=== PATIENT | male | born 1935 | race Caucasian/White ===

== ENCOUNTER → 2017-10-22 16:25 | Outpatient (CLI) | payer MEDICARE, OTHER ==
[~2017-10-22 16:25] MED LIST: COREG25 MG PO; ELIQUIS2.5 MG PO; HYDROCODON-ACE1 EAC7 PO; ISOSORBIDE MONO30 M1 PO; K-TAB10 MEQ PO; METOLAZONE2.5 MG PO; ZESTRIL20 MG PO; ZOCOR80 MG PO
[2017-11-05 18:28] VITALS: BMI 35.9
== END | disposition home or self-care (01) ==
LOC: D.LABREF 16:25
DX: M17.11 Unilateral primary osteoarthritis, right knee (principal); Z11.8 Encounter for screening for other infectious and parasitic diseases

== ENCOUNTER 2017-10-30 10:00 | Inpatient (IN) | payer MEDICARE, OTHER ==
[~2017-10-30] VITALS: Ht 177.8 cm; Wt 113.6 kg
--- NOTE | ~2017-10-30 | OP ---
PATIENT NAME: MENG HALL MEDICAL RECORD: [id number] :37 LOCATION:[facility] [id number] ADMISSION DATE:11/04/17 SURGEON: NUHA STAPLETON MD DATE OF OPERATION: 11/04/2017 PREOPERATIVE DIAGNOSIS: Degenerative arthritis, right knee. POSTOPERATIVE DIAGNOSIS: Degenerative arthritis, right knee. PROCEDURE: Right total knee arthroplasty. SURGEON: Nuha Stapleton MD ANESTHESIA: General. INTRAOPERATIVE COMPLICATIONS: None. 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 IMPLANTS USED: Triathlon total knee implant system, size 6 distal femur, 5 tibial baseplate, 9 mm polyethylene insert and 36 patellar component. OPERATIVE SUMMARY IN DETAIL: After obtaining the appropriate preoperative orthopedic surgery consent as well as anesthetic consultation, evaluation, and clearance, the patient was brought to the operating room and placed on the operating table in supine position. After general laryngeal mask airway was administered, tourniquet was placed about the proximal aspect of the right lower extremity. Right lower extremity was prepped and draped in routine sterile fashion. Leg was elevated and exsanguinated and the tourniquet inflated to 350 mmHg. Routine midline incision was taken down for paramedian arthrotomy. Patella was everted, distal femur was exposed. Soft tissue excision was done in the usual fashion. Intramedullary guide hole was created for distal femoral cut using intramedullary guidance. The distal femur was cut followed by complete exposure of the proximal tibia. Intramedullary guide hole was created here as well. Proximal tibial cut was made. Measurements were taken. Distal chamfer cuts were made on the distal tibia. Trials were put into place corresponding to the above-mentioned final implants, taken through range of motion and found to be stable in all planes. At this point, the arthritic surface of the patella was excised and made ready for a size 36 patellar component. Wound was copiously irrigated at this point. The knee was then exposed and dried. All components were cemented into place. Excess cement was removed before the cement was allowed to harden. After the cement was allowed to harden, the knee was taken through range of motion and found to be stable in all planes. Having completed this, the wound was filled with Vitagel. Paramedian arthrotomy was closed with 2-0 Ethibond. This was followed by #1 Vicryl, 2-0 Vicryl and skin srinivas. Sterile dressings were applied. The patient was awakened and taken to the recovery room in stable condition. All final needle and sponge counts were correct. TRANSINT:[id number] Voice Confirmation ID: [id number] DOCUMENT ID: [id number] OPERATIVE REPORT [id number] MENG HALL MD, NUHA ZHAO at 1657 CC: [id number] DICTATION DATE: 11/04/17 1248 UPHOLSTERER ASSEMBLY LINE: 11/04/17 1322 ADM IN [facility] [address] [id number]
[~2017-10-30 10:00] MED LIST changes: -ELIQUIS2.5 MG PO; -HYDROCODON-ACE1 EAC7 PO
[2017-10-30 10:50] LABS: BASOPHILS 0.6 % (0-2); EOSINOPHILS 5.5 % (0-7); HEMATOCRIT 41.6 % (42.0-54.0); HEMOGLOBIN 13.7 g/dL (13.5-17.5); IMMATURE GRANULOCYTES 0.3 % (0-5); LYMPHOCYTES 28.8 % (15-50); MCH 30.2 pg (26.0-34.0); MCHC 32.9 g/dL (31.0-37.0); MCV 91.8 fL (80.0-100.0); MEAN PLATELET VOLUME 9.7 fL (7.4-10.4); NEUTROPHILS 57.8 % (40-80); PLATELET COUNT 160 10x3/uL (130-400); RBC 4.53 10x6/uL (4.20-6.10); RDW 13.3 % (11.5-14.5); WBC 6.7 10x3/uL (4.8-10.8)
[2017-10-30 11:02] LABS: ANION GAP 9.6 mmol/L (8-16); CALCIUM 8.7 mg/dL (8.5-10.1); CREATININE - SERUM 1.2 mg/dL (0.6-1.3); POTASSIUM - SERUM 3.6 mmol/L (3.5-5.1)
[2017-10-30 11:04] LABS: APTT 33.1 SECONDS (22.8-39.4); INR 1.08 (0.85-1.17); PROTIME 13.6 SECONDS (11.6-15.0)
[2017-10-30 11:08] LABS: APPEARANCE CLEAR (CLEAR); BILIRUBIN NEGATIVE (NEGATIVE); COLOR YELLOW (YELLOW); GLUCOSE NEGATIVE (NEGATIVE); KETONE NEGATIVE (NEGATIVE); NITRITE NEGATIVE (NEGATIVE); PROTEIN NEGATIVE (NEGATIVE); UROBILINOGEN NORMAL (NORMAL)
[2017-11-04 08:46] VITALS: BP 135/63; BMI 36.6
[2017-11-04 14:28] VITALS: BP 119/43
[2017-11-04 14:41] VITALS: BP 119/73; BMI 35.9
[2017-11-04 20:58] VITALS: BP 114/69
[2017-11-05 00:40] VITALS: BP 120/67
[2017-11-05 04:38] VITALS: BP 123/67
[2017-11-05 06:13] LABS: HEMATOCRIT 35.4 % (42.0-54.0); HEMOGLOBIN 11.6 g/dL (13.5-17.5); MCH 29.9 pg (26.0-34.0); MCHC 32.8 g/dL (31.0-37.0); MCV 91.2 fL (80.0-100.0); MEAN PLATELET VOLUME 9.8 fL (7.4-10.4); RBC 3.88 10x6/uL (4.20-6.10); RDW 13.1 % (11.5-14.5); WBC 9.9 10x3/uL (4.8-10.8)
[2017-11-05 09:10] VITALS: BP 126/73
[2017-11-05 12:18] LABS: APPEARANCE CLEAR (CLEAR); BILIRUBIN NEGATIVE (NEGATIVE); COLOR STRAW (YELLOW); GLUCOSE NEGATIVE (NEGATIVE); KETONE NEGATIVE (NEGATIVE); NITRITE NEGATIVE (NEGATIVE); PROTEIN NEGATIVE (NEGATIVE); SPECIFIC GRAVITY 1.015 (1.005-1.020); UROBILINOGEN NORMAL (NORMAL)
[2017-11-05 13:51] VITALS: BP 106/57
[2017-11-05 18:28] VITALS: Ht 177.8 cm; Wt 113.6 kg
[2017-11-05 20:00] VITALS: BP 106/60
[2017-11-06] VITALS: BP 113/56
[2017-11-06 04:00] VITALS: BP 103/61
[2017-11-06 05:31] LABS: HEMATOCRIT 33.7 % (42.0-54.0); HEMOGLOBIN 11.1 g/dL (13.5-17.5); MCH 30.1 pg (26.0-34.0); MCHC 32.9 g/dL (31.0-37.0); MCV 91.3 fL (80.0-100.0); RBC 3.69 10x6/uL (4.20-6.10); RDW 13.2 % (11.5-14.5); WBC 8.7 10x3/uL (4.8-10.8)
[2017-11-06 08:04] VITALS: BP 116/59
[2017-11-06 12:18] VITALS: BP 107/55
[2017-11-06 15:39] VITALS: BP 114/58
[2017-11-06 19:54] VITALS: BP 110/55
[2017-11-07] VITALS: BP 124/61
[2017-11-07 04:00] VITALS: BP 127/85
[2017-11-07 08:04] VITALS: BP 140/62; BP 141/92
[2017-11-07] MEDS ORDERED: ELIQUIS2.5 MG PO (08:09)
[2017-11-07] MEDS ORDERED: HYDROCODON-ACE1 EAC7 PO (08:10)
== END 2017-11-07 11:05 | DRG 470 ==
LOC: D.SDCHOLD 10:00 → D.MS 11-04 07:20 → D.SDCHOLD 11-04 07:20 → D.MS 11-04 14:25
PROVIDERS: Orthopaedic Surgery
PROC: 0SRC0J9 Replacement of Right Knee Joint with Synthetic Substitute, Cemented, Open Approach (ICD-10-PCS; principal; 2017-11-04 09:45)
PROC: 0T9B70Z Drainage of Bladder with Drainage Device, Via Natural or Artificial Opening (ICD-10-PCS; 2017-11-05)
DX: M17.11 Unilateral primary osteoarthritis, right knee (principal); I42.9 Cardiomyopathy, unspecified; I10 Essential (primary) hypertension; N40.1 Benign prostatic hyperplasia with lower urinary tract symptoms; R33.8 Other retention of urine